=== PATIENT | female | born 1965 | race American Indian/Alaskan Native ===

== ENCOUNTER 2016-10-24 14:05 | Inpatient (IN) | payer MEDICAID, OTHER ==
--- NOTE | 2016-10-24 14:35 | C.PDOC ---
History Of Present Illness 51 y/o female, hx of morbid obesity, presents to emergency department with complaint of low back pain and b/l "leg weakness:, she has had worsening over last "few days". at baseline, pt usually is sedentary due to habitus, and is only able to ambulate with the assistance of a walker. pt c/o of lower back pain , but denies specific trauma, saddle anesthesia, urinary changes, bowel/bladder incontinence. no h/o of herniated discs or spinal canal disease. no numbness paresthesias. at bedside, pt is poor historian. Time Seen by Provider: 10/24/16 14:19 Chief Complaint (Nursing): Weakness/Neurological Deficit History Per: Patient History/Exam Limitations: no limitations Onset/Duration Of Symptoms: Days Current Symptoms Are (Timing): Still Present Fall Associated With With Symptoms: No Recent travel outside of the [place]: No Past Medical History Reviewed: Historical Data, Nursing Documentation, Vital Signs Vital Signs: Last Vital Signs Temp 97.7 F 10/30/16 15:40 Pulse 88 10/30/16 15:40 Resp 20 10/30/16 15:40 BP 124/82 10/30/16 15:40 Pulse Ox 96 10/30/16 15:40 - Medical History PMH: Anemia, Asthma, COPD, Diabetes, HTN - [facility] Procedures GROUP PSYCHOTHERAPY (10/24/16) INDIVIDUAL PSYCHOTHERAPY, COGNITIVE-BEHAVIORAL (10/24/16) INDIVIDUAL PSYCHOTHERAPY, SUPPORTIVE (10/24/16) Family History: States: Unknown Family Hx - Social History Hx Tobacco Use: No Hx Alcohol Use: No Hx Substance Use: No Review Of Systems Except As Marked, All Systems Reviewed And Found Negative. Constitutional: Negative for: Fever, Chills Cardiovascular: Negative for: Chest Pain Respiratory: Negative for: Shortness of Breath, Wheezing Gastrointestinal: Negative for: Nausea, Vomiting, Abdominal Pain Musculoskeletal: Positive for: Back Pain, Leg Pain. Negative for: Neck Pain Neurological: Positive for: Weakness (bilateral legs). Negative for: Headache Physical Exam - Physical Exam Appears: Non-toxic, No Acute Distress, Other ((+)morbidly obese, in mild painful distress.) Skin: Normal Color, Warm, Dry Head: Atraumatic, Normacephalic Neck: Normal ROM, Supple Chest: Symmetrical, No Tenderness Cardiovascular: Rhythm Regular Respiratory: Normal Breath Sounds, No Rales, No Rhonchi, No Wheezing Gastrointestinal/Abdominal: Soft, No Tenderness, No Mass, No Guarding, No Rebound Back: Vertebral Tenderness (lumbar), No Paraspinal Tenderness Extremity: Normal ROM, No Tenderness, Capillary Refill (< 2 sec. ), No Deformity, No Swelling Extremity: Bilateral: Normal Color And Temperature Neurological/Psych: Oriented x3, Normal Speech, Normal Cognition, Normal Sensation, Other (flat affect, (+)hip flexion 2/5 (+)5/5 knee flexion, extention (+)5/5 plantar flexion/extention, Normal sensation, no saddle anesthesia) ED Course And Treatment - Laboratory Results Result Diagrams: 10/30/16 07:17 08 07:17 O2 Sat by Pulse Oximetry: 98 (RA) Pulse Ox Interpretation: Normal - Other Rad Lumbar Spine XR X-Ray: Viewed By Me, Read By Radiologist Interpretation: FINDINGS: Osseous demineralization. Multilevel degenerative changes including mild osteophyte formation. Facet hypertrophy. Vertebral body heights appear within normal limits. Intervertebral disc spaces appear preserved. IVC filter. Two punctate radiopaque densities project over the right upper quadrant of unclear etiology. IMPRESSION: Degenerative changes of the spine. IVC filter. Two sub cm radiopaque densities project over the right upper quadrant of unclear etiology. Correlate clinically. Medical Decision Making Medical Decision Making: pt with low back pain, and "leg weakness". pt poor historian, will eval for lumbar disc disease, labs imaging pending, pt w/o saddle anesthesia, bowel/ bladder incontinence, acute cord compression less likely. Plan: * morphine * MRI lumbar spine * labs, urinalysis * reassess Progress Notes: 300: case discussed with driver license technician, will attempt to obtain mri, unsure if body habitus will prevent imaging study. 330: attempted to obtain MRI, however unable to obtain given body habitus. T lumbar spine ordered. 16:19 - Discussed with Dr. Thurston. resident bedside, accepts for obs pt with difficulty ambulating, will need PT eval for gait dysfunction. ct later resulted as mild disc bulge. pt observed in er in nad, taking po. Disposition - Disposition Disposition: HOSPITALIZED Disposition Time: 05:00 Condition: STABLE - Clinical Impression Clinical Impression: Low back pain, Unsteady gait - Scribe Statement The provider has reviewed the documentation as recorded by the Scribe Kamron Heller All medical record entries made by the Carolee were at my direction and personally dictated by me. I have reviewed the chart and agree that the record accurately reflects my personal performance of the history, physical exam, medical decision making, and the department course for this patient. I have also personally directed, reviewed, and agree with the discharge instructions and disposition.
[2016-10-24] MEDS ORDERED: Morphine 4 MG/ML VIAL IVP STA (14:41)
[2016-10-24] MEDS ORDERED: Morphine 4 MG/ML VIAL ONE ×2 (15:32→16:47)
[2016-10-24 15:34] LABS: BASO # 0.1 K/uL (0.0-0.2); BASO % 0.5 % (0.0-2.0); EOS # 0.1 K/uL (0.0-0.7); EOS % 0.5 % (0.0-4.0); HEMATOCRIT 40.3 % (34.0-47.0); LYMPH # 1.4 K/uL (1.0-4.3); LYMPH % 11.7 % (20.0-40.0); MEAN CELL VOLUME 86.5 fL (81.0-99.0); MEAN CORPUSCULAR HEMOGLOBIN 27.5 pg (27.0-31.0); MEAN CORPUSCULAR HGB CONC 31.8 g/dL (33.0-37.0); MEAN PLATELET VOLUME 8.6 fL (7.2-11.7); MONO # 0.6 K/uL (0.0-0.8); MONO % 5.1 % (0.0-10.0); RED CELL DISTRIBUTION WIDTH 14.3 % (11.5-14.5); WHITE BLOOD COUNT 12.1 K/uL (4.8-10.8)
[2016-10-24 15:42] LABS: INR 1.1
[2016-10-24 15:46] LABS: CHLORIDE 104 mmol/L (98-107)
[2016-10-24 15:47] LABS: POTASSIUM 4.4 mmol/L (3.6-5.2); SODIUM 142 mmol/L (132-148)
[2016-10-24 15:49] LABS: ALB/GLOB RATIO 1.1 (1.0-2.1); AST/SGOT 24 U/L (14-36); BILIRUBIN,TOTAL 0.7 mg/dL (0.2-1.3); BLOOD UREA NITROGEN 19 mg/dL (7-17); CARBON DIOXIDE 23 mmol/L (22-30); GFR AFRICAN-AMERICAN > 60; TOTAL PROTEIN 7.2 g/dL (6.3-8.3)
[2016-10-24 15:50] LABS: ALKALINE PHOSPHATASE 85 U/L (38-126); ALT/SGPT 25 U/L (9-52); CALCIUM 9.3 mg/dl (8.6-10.4); GLUCOSE,RANDOM 162 mg/dL (65-105)
--- NOTE | 2016-10-24 17:15 | RAD ---
PROCEDURE: Radiographs of the Lumbar Spine. HISTORY: low back pain COMPARISON: None available. FINDINGS: Osseous demineralization. Multilevel degenerative changes including mild osteophyte formation. Facet hypertrophy. Vertebral body heights appear within normal limits. Intervertebral disc spaces appear preserved. IVC filter. Two punctate radiopaque densities project over the right upper quadrant of unclear etiology. IMPRESSION: Degenerative changes of the spine. IVC filter. Two sub cm radiopaque densities project over the right upper quadrant of unclear etiology. Correlate clinically.
--- NOTE | 2016-10-24 17:49 | CP.PCM.PN ---
Subjective - Date & Time of Evaluation Date of Evaluation: 10/24/16 Time of Evaluation: 17:38 - Subjective Subjective: Medicine Note- Dr Thurston's Service 51 year old female with PMHx of HTN, DM, Asthma, COPD, anemia, depression, and DVT with IVC filter presents with complaint of lower extremity weakness. Patient states that 4 days ago she started to experience bilateral lower leg weakness where her legs felt "heavy." The patient is normally sedentary and only gets up to use the restroom. She ambulates without any assistance but walks slowly due to her obese status. Yesterday the patient was going to the bathroom and fell after her "legs gave out" on her. Patient fell forward on her elbows and scraped them. Patient denies loss of consciousness, dizziness, incontinence, or head trauma at that time. The patient remembers the incident clearly. After her fall the patient developed low back pain, rated 10/10. She started taking Tylenol which has not been helping relieve her symptoms. The patient denies numbness or tingling of her extremities that is new, but does admit to chronic diabetic neuropathy. She denies fever, chills, recent illness , neck pain, confusion, dizziness, change in vision, tinnitus, abdominal pain, incontinence, change in bowel movements, palpitations, recent trauma, recent travel, slurred speech, dysphagia, recent weight changes. The patient admits that she has not been sleeping well and is requesting a psychiatrist. Patient denies visual or auditory hallucinations, suicidal ideations, or homicidal ideations. In the ED the patient was taken for Lumbar spine X-ray and CT scan. MRI of the spine could not be done due to patient's body habitus. PMD: Dr Davis PMHx: HTN, DM, Asthma, COPD, anemia, depression, and DVT with IVC filter Meds: Folic acid daily, Metformin 500mg PO daily, Feosol 325mg PO BID, Atorvastatin 10mg PO HS, Risperdone 2mg PO BID, Enalapril 10mg PO daily, Prednisone 10mg PO daily, Gabapentin 400mg PO TID, Humalog 30u SC AM, Serovent INH 2puff BID Family Hx: 2 sisters- CVA; Dad- [place] Surgical Hx: L oophorectomy, cholecystectomy, IVC filter Social Hx: Denies EtOH use; denies illicit drug use; previous smoker quit 30 years ago (smoked for 10 years); lives at home with daughter and son Allergies: no known allergies Objective - Vital Signs/Intake and Output Vital Signs (last 24 hours): Temp Pulse Resp BP Pulse Ox 98 F 75 18 119/67 95 10/24/16 14:27 10/24/16 16:50 10/24/16 16:50 10/24/16 16:50 10/24/16 16:50 - Medications Medications: Current Medications Enoxaparin Sodium (Lovenox) 40 mg SC DAILY [facility] Famotidine (Pepcid) 20 mg PO BID [facility] - Labs Labs: PT 12.4 SECONDS (9.7-12.2) H 10/24/16 15:31 INR 1.1 10/24/16 15:31 APTT 29 SECONDS (21-34) 10/24/16 15:31 - Constitutional Appears: Non-toxic, No Acute Distress - Head Exam Head Exam: ATRAUMATIC, NORMOCEPHALIC - Eye Exam Eye Exam: EOMI, Normal appearance, PERRL. absent: Nystagmus Pupil Exam: NORMAL ACCOMODATION - ENT Exam ENT Exam: Mucous Membranes Moist - Neck Exam Neck Exam: Full ROM, Normal Inspection. absent: Tenderness - Respiratory Exam Respiratory Exam: Clear to Ausculation Bilateral, NORMAL BREATHING PATTERN. absent: Rales, Rhonchi, Wheezes, Respiratory Distress - Cardiovascular Exam Cardiovascular Exam: REGULAR RHYTHM, +S1, +S2. absent: Tachycardia, Diastolic murmur, Irregular Rhythm - GI/Abdominal Exam GI & Abdominal Exam: Soft, Normal Bowel Sounds. absent: Distended, Firm, Guarding, Rigid, Tenderness Additional comments: central obesity - Extremities Exam Extremities Exam: Pedal Edema (mild non-pitting edema bilateral ankles ). absent: Full ROM, Tenderness - Back Exam Back Exam: paraspinal tenderness - Neurological Exam Neurological Exam: Alert, Awake, CN II-XII Intact, Oriented x3 Neuro motor strength exam: Left Upper Extremity: 5, Right Upper Extremity: 5, Left Lower Extremity: 2/1 (pateint unable to lift legs off bed), Right Lower Extremity: 2/1 (pateint unable to life legs off bed ) - Psychiatric Exam Psychiatric exam: Flat Affect, Normal Mood. absent: Agitated, Anxious, Depressed, Homicidal Ideation, Suicidal Ideation - Skin Skin Exam: Dry, Intact, Normal Color, Warm Assessment and Plan - Assessment and Plan (Free Text) Assessment: 1. Bilateral Lower Extremity Weakness * Xray L-spine: degenerative changes * CT L-Spine: Degenerative change no fracture; mild disc bulge at L5/S1 * Consulted Dr Juan David stewart f/u recommendations * f/u lyme, B12, Vitamin D, folate * PT/OT eval * f/u elbow X-rays 2. Back pain * Gabapentin 400mg PO TID * Morphine 1mg IV q4h prn 3. DM * f/u HgA1C * Metformin 500mg PO daily * ISS * Accuchecks 4. HTN * Monitor vitals q4h * Continue home meds: Enalapril 10mg PO daily 5. Asthma/COPD * Well controlled * Duonebs 3ml INH q6h [facility] * Prednisone 10mg PO daily 6. Hx Depression * Denies SI/HI at this time * Consulted psych Dr Kaila stewart f/u recommendations * Risperdone 2mg PO BID 7. Hx of DVT with IVC filter * f/u venous dopplers 8. Prophylactic measures * Lovenox 40mg SC daily * Pepcid 20mg PO BID
--- NOTE | 2016-10-24 18:18 | CT ---
EXAM: CT Lumbar Spine Without Intravenous Contrast CLINICAL HISTORY: 51 years old, female; Pain; Low back pain TECHNIQUE: Axial computed tomography images of the lumbar spine without intravenous contrast. This CT exam was performed using one or more of the following dose reduction techniques: automated exposure control, adjustment of the mA and/or kV according to patient size, and/or use of iterative reconstruction technique. Coronal and sagittal reformatted images were created and reviewed. EXAM DATE/TIME: 10/24/2016 4:03 PM COMPARISON: There are no prior studies for comparison. FINDINGS: Limitations: Technique limits evaluation of soft tissues Vertebrae and Discs/spinal canal/neural foramina: Lumbar vertebral bodies are normal in height and alignment. There are no fractures. There is degenerative facet disease greatest at L4-5 and L5-S1. There is facet joint narrowing and subchondral sclerosis. Disc spaces are maintained. There is mild disc bulging L5/S1. Sacroiliac joints are patent. Mineralization is normal. Soft tissues: Psoas and paraspinous muscles are symmetric. Vasculature: An IVC filter is in place. Reproductive: Uterus is enlarged and lobular with partially calcified fibroids. IMPRESSION: Degenerative change no fracture; mild disc bulge at L5/S1 MRI suggests more further evaluation as clinically indicated
[2016-10-24] MEDS: (Novolin R) Insulin Human Regular 100 units/ml vial SC SCH (22:14)
[2016-10-24 22:18] LABS: FOLATE > 20.0 ng/mL
[2016-10-24] MEDS: Albuterol-Ipratrop 3 mg / 0.5 (3 ml) UD INH SCH (22:35)
[2016-10-25] MEDS: Albuterol-Ipratrop 3 mg / 0.5 (3 ml) UD INH SCH ×4 (01:14→19:45)
[2016-10-25 07:03] LABS: BASO # 0.1 K/uL (0.0-0.2); BASO % 0.7 % (0.0-2.0); EOS # 0.2 K/uL (0.0-0.7); EOS % 1.8 % (0.0-4.0); LYMPH # 2.7 K/uL (1.0-4.3); LYMPH % 22.7 % (20.0-40.0); MEAN CORPUSCULAR HEMOGLOBIN 27.7 pg (27.0-31.0); MEAN CORPUSCULAR HGB CONC 31.8 g/dL (33.0-37.0); MEAN PLATELET VOLUME 8.7 fL (7.2-11.7); MONO # 0.9 K/uL (0.0-0.8); MONO % 7.7 % (0.0-10.0); RED CELL DISTRIBUTION WIDTH 14.2 % (11.5-14.5)
[2016-10-25 07:06] LABS: ALB/GLOB RATIO 1.3 (1.0-2.1); ALKALINE PHOSPHATASE 76 U/L (38-126); ALT/SGPT 26 U/L (9-52); AST/SGOT 19 U/L (14-36); BILIRUBIN,TOTAL 0.3 mg/dL (0.2-1.3); BLOOD UREA NITROGEN 19 mg/dL (7-17); CALCIUM 9.1 mg/dl (8.6-10.4); CARBON DIOXIDE 26 mmol/L (22-30); CHLORIDE 103 mmol/L (98-107); CHOLESTEROL 150 mg/dL (0-199); GFR AFRICAN-AMERICAN > 60; GLUCOSE,RANDOM 154 mg/dL (65-105); POTASSIUM 4.2 mmol/L (3.6-5.2); SODIUM 142 mmol/L (132-148); TOTAL PROTEIN 6.3 g/dL (6.3-8.3)
[2016-10-25] MEDS: (Novolin R) Insulin Human Regular 100 units/ml vial SC SCH ×4 (07:30→21:44)
[2016-10-25 07:34] LABS: THYROID STIMULATING HORMONE 2.46 mIU/L (0.46-4.68)
--- NOTE | 2016-10-25 09:54 | CP.PCM.PN ---
Subjective - Date & Time of Evaluation Date of Evaluation: 10/25/16 Time of Evaluation: 09:46 - Subjective Subjective: Medicine Note- Dr Thurston's service Patient seen and examined. Patient states that she is still having back pain today and that the morphine is not helping her. Patient continues to complain of lower leg weakness but is able to lift her legs higher and move them more today. Patient complains that she did not sleep last night again. Patient has difficulty sleeping at home as well but does not take any medications for sleep. Patient has been in [facility] multiple times in the past for generalized weakness and gait instability. The patient admits that she would like to go to long-term placement facility at this time because she is unable to take care of herself at home. Patient denies all other ROS. Objective - Vital Signs/Intake and Output Vital Signs (last 24 hours): Temp Pulse Resp BP Pulse Ox 98.2 F 78 20 116/77 96 10/25/16 08:19 10/25/16 08:19 10/25/16 08:19 10/25/16 08:19 10/25/16 08:19 - Medications Medications: Current Medications Albuterol/Ipratropium (Duoneb 3 Mg/0.5 Mg (3 Ml) Ud) 3 ml INH RQ6 [facility] Last Admin: 10/25/16 07:52 Dose: 3 ml Ascorbic Acid (Vitamin C 500 Mg Tab) 500 mg PO DAILY [facility] Enalapril Maleate (Vasotec) 10 mg PO DAILY [facility] Enoxaparin Sodium (Lovenox) 40 mg SC DAILY [facility] Famotidine (Pepcid) 20 mg PO BID [facility] Last Admin: 10/24/16 19:05 Dose: 20 mg Ferrous Sulfate (Feosol) 325 mg PO BID [facility] Folic Acid (Folic Acid) 1 mg PO DAILY [facility] Gabapentin (Neurontin) 400 mg PO TID [facility] Insulin Human Regular (Novolin R) 0 unit SC ACHS [facility] PRN Reason: Protocol Last Admin: 10/24/16 22:14 Dose: Not Given Metformin HCl (Glucophage) 500 mg PO DAILY [facility] Morphine Sulfate (Morphine) 1 mg IVP Q4 PRN PRN Reason: Pain, moderate (4-7) Last Admin: 10/24/16 20:58 Dose: 1 mg Multivitamins (Hexavitamin) 1 tab PO DAILY [facility] Prednisone (Prednisone Tab) 10 mg PO DAILY [facility] Risperidone (Risperdal Tab) 2 mg PO BID [facility] Rosuvastatin Calcium (Crestor) 5 mg PO HS [facility] - Labs Labs: 10/25/16 06:42 10/25/16 06:38 PT 12.4 SECONDS (9.7-12.2) H 10/24/16 15:31 INR 1.1 10/24/16 15:31 APTT 29 SECONDS (21-34) 10/24/16 15:31 - Constitutional Appears: Non-toxic, No Acute Distress - Head Exam Head Exam: ATRAUMATIC, NORMOCEPHALIC - Eye Exam Eye Exam: EOMI, Normal appearance - ENT Exam ENT Exam: Mucous Membranes Moist - Respiratory Exam Respiratory Exam: Clear to Ausculation Bilateral, NORMAL BREATHING PATTERN. absent: Rhonchi, Wheezes, Respiratory Distress - Cardiovascular Exam Cardiovascular Exam: REGULAR RHYTHM, +S1, +S2. absent: Murmur - GI/Abdominal Exam GI & Abdominal Exam: Soft, Normal Bowel Sounds. absent: Guarding, Rigid, Tenderness Additional comments: central obesity - Extremities Exam Extremities Exam: Pedal Edema (bilateral LE pedal edema, non-pitting). absent: Tenderness - Back Exam Back Exam: paraspinal tenderness (L3-L5). absent: rash noted, vertebral tenderness - Neurological Exam Neurological Exam: Alert, Awake, CN II-XII Intact, Oriented x3 Neuro motor strength exam: Left Upper Extremity: 5, Right Upper Extremity: 5, Left Lower Extremity: 3, Right Lower Extremity: 3 Additional comments: resting tremor in upper extremities - Psychiatric Exam Psychiatric exam: Flat Affect, Normal Mood Assessment and Plan - Assessment and Plan (Free Text) Assessment: 1. Bilateral Lower Extremity Weakness * Xray L-spine: degenerative changes * CT L-Spine: Degenerative change no fracture; mild disc bulge at L5/S1 * Consulted Dr Juan David Newberry- terry f/u recommendations * f/u lyme * B12, vitamin D and folate within normal limits * PT/OT eval * f/u elbow X-rays 2. Back pain * Gabapentin 400mg PO TID * Morphine 2mg IV q4h prn mod pain 3. DM * HgA1C 8.1 * Metformin 500mg PO daily * ISS * Accuchecks 4. HTN * Well controlled * Monitor vitals q4h * Continue home med: Enalapril 10mg PO daily 5. Asthma/COPD * Well controlled * Duonebs 3ml INH q6h [facility] * Prednisone 10mg PO daily * Singulair 10mg PO HS 6. Hx Depression * Denies SI/HI at this time * Consulted psych Dr Kaila stewart f/u recommendations * Risperdone 2mg PO BID 7. Hx of DVT with IVC filter * venous dopplers + bilateral DVTs * No acute intervention at this time as patient has IVC filter and this is chronic 8. Prophylactic measures * Lovenox 40mg SC daily * Pepcid 20mg PO BID * Pending placement to LT care facility All management and orders per Dr Thurston
[2016-10-25] MEDS: Multiple Vitamins Tab PO SCH (10:54)
[2016-10-25] MEDS: Enoxaparin 40 mg Syringe SC SCH (10:54)
--- NOTE | 2016-10-25 11:45 | RAD ---
PROCEDURE: Radiographs of the left elbow. HISTORY: trauma s/p fall COMPARISON: No prior. FINDINGS: BONES: Normal. No fracture. JOINTS: Normal. No osteoarthritis. SOFT TISSUES: Normal. JOINT EFFUSION: None. OTHER FINDINGS: None IMPRESSION: No acute findings related to/accounting for the clinical presentation.
--- NOTE | 2016-10-25 15:17 | VASCLAB ---
PROCEDURE: Lower Extremity Venous Duplex Exam. HISTORY: hx DVT, leg swelling PRIORS: None. TECHNIQUE: Bilateral common femoral, femoral, popliteal and posterior tibial, peroneal and great saphenous veins were evaluated. Flow was assessed with color Doppler, compressibility, assessment of phasic flow and augmentation response. Report prepared by HARSHA Dejesus, RVT FINDINGS: RIGHT: 1. Common Femoral Vein: 1.1. Compressibility - Partial: Thrombus - Acute : Flow - Absent : Augmentation -None: Reflux - None. 2. Femoral Vein: 2.1. Compressibility - Partial: Thrombus - Acute : Flow - Absent : Augmentation -None: Reflux - None. 3. Popliteal Vein: 3.1. Compressibility - Partial: Thrombus - Acute : Flow - Absent : Augmentation -None: Reflux - None. 4. Posterior Tibial Vein: 4.1. Compressibility - : Thrombus - : Flow - : Augmentation -: Reflux - . 5. Peroneal Vein: 5.1. Compressibility - : Thrombus - : Flow - : Augmentation -: Reflux - . 6. Great Saphenous Vein: 6.1. Compressibility - Partial: Thrombus - Acute: Flow - Absent : Augmentation - None: Reflux - None. LEFT: 1. Common Femoral Vein: 1.1. Compressibility - Incompressible: Thrombus - Chronic: Flow - Reduced : Augmentation -Reduced: Reflux - None. 2. Femoral Vein: 2.1. Compressibility - Fully compressible: Thrombus - None: Flow - Phasic: Augmentation -Normal: Reflux - None. 3. Popliteal Vein: 3.1. Compressibility - Fully compressible: Thrombus - None : Flow - Phasic: Augmentation -Normal: Reflux - None. 4. Posterior Tibial Vein: 4.1. Compressibility - Fully compressible: Thrombus - None: Flow - Phasic: Augmentation -Normal: Reflux - None. 5. Peroneal Vein: 5.1. Compressibility - Fully compressible: Thrombus - None: Flow - Phasic: Augmentation -Normal: Reflux - None. 6. Great Saphenous Vein: 6.1. Compressibility - Incompressible: Thrombus - Chronic: Flow - Reduced : Augmentation - Reduced: Reflux - None. OTHER FINDINGS: RN Edilberto notified about the findings. IMPRESSION: Right: Acute thrombosis of the right common femoral, femoral, popliteal and greater saphenous veins with severe reduction of the venous return. 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
--- NOTE | 2016-10-25 16:09 | PCM.PSYCH ---
Initial Psychiatric Evaluation - Initial Psychiatric Evaluation Type of Admission: Voluntary Legal Status: Capacity Chief Complaint (in patient's own words): "I need help sleeping" Consult request from Dr. Thurston History of Present Illness and Precipitating Events: Patient is seen and evaluated with medical student present. This is a 51 year old female, , 3 children (25yo - daughter; 27yo & 28yo - sons), previously employed as a retail merchandising specialist, and currently lives with her daughter in [place]. Patient has a history of bipolar disorder and per patient, is admitted to medicine service because, "my legs aren't working." Patient states that she is currently treated with Risperdol and would like to be put on something else. Patient reports that her current medication is not helping her depression at all. Patient states that 2 months ago, she began having difficulty falling asleep and staying asleep; sleeping in 2 hour intervals. Patient denies previous difficulty sleeping, describing a regular 7 hours of rarely interrupted sleep, except to use the bathroom and was able to fall back to sleep. Patient is seeking help with her sleep and depression. Patient denies SI/HI. Denies auditory/visual hallucinations. Patient reports symptoms of paranoia, feeling as if shes being watched and people are talking about her. Patient states that her depression is affect by both her current medical state and the loss of her mother in November 2015. Patient reports increasing depression as the 1yr anniversary of her mother's approaches. Past MedHx: HTN, Asthma, COPD, DM, Anemia Past PsycHx: Bipolar Substance Use: Denies Tobacco: quit in 1990 Alcohol: Denies Allergies: NKDA Current Medications: Active Medications Generic Name Dose Route Start Last Admin Trade Name Freq PRN Reason Stop Dose Admin Albuterol/Ipratropium 3 ml 10/24/16 20:00 10/25/16 14:11 Duoneb 3 Mg/0.5 Mg (3 Ml) Ud INH 3 ml RQ6 [facility] Administration Ascorbic Acid 500 mg 10/25/16 10:10/25/16 10:54 Vitamin C 500 Mg Tab PO 500 mg DAILY [facility] Administration Enalapril Maleate 10 mg 10/25/16 10:00 10/25/16 10:57 Vasotec PO 10 mg DAILY [facility] Administration Enoxaparin Sodium 40 mg 10/25/16 10:00 10/25/16 10:54 Lovenox SC 40 mg DAILY [facility] Administration Famotidine 20 mg 10/24/16 18:00 10/25/16 10:54 Pepcid PO 20 mg BID [facility]A Administration Ferrous Sulfate 325 mg 10/25/16 10:00 10/25/16 10:54 Feosol PO 325 mg BID [facility] Administration Folic Acid 1 mg 10/25/16 10:00 10/25/16 10:55 Folic Acid PO 1 mg DAILY [facility] Administration Gabapentin 400 mg 10/25/16 10:00 10/25/16 13:07 Neurontin PO 400 mg TID [facility] Administration Insulin Human Regular 0 unit 10/24/16 22:00 10/25/16 11:58 Novolin R SC 3 unit ACHS [facility]A Administration Protocol Metformin HCl 500 mg 10/25/16 10:00 10/25/16 10:55 Glucophage PO 500 mg DAILY [facility] Administration Montelukast Sodium 10 mg 10/25/16 22:00 Singulair PO HS [facility] Morphine Sulfate 2 mg 10/25/16 09:58 Morphine IVP Q4 PRN Pain, moderate (4-7) Multivitamins 1 tab 10/25/16 10:00 10/25/16 10:54 Hexavitamin PO 1 tab DAILY [facility] Administration Prednisone 10 mg 10/25/16 10:00 10/25/16 10:54 Prednisone Tab PO 10 mg DAILY [facility] Administration Risperidone 2 mg 10/25/16 10:00 10/25/16 10:54 Risperdal Tab PO 2 mg BID [facility] Administration Rosuvastatin Calcium 5 mg 10/25/16 22:00 Crestor PO HS [facility] Past Psychiatric History - Past Psychiatric History Previous Treatment History: None Pertinent Medical Hx (Current Medical&Sleep Prob, Allergies): Allergies Allergy/AdvReac Type Severity Reaction Status Date / Time No Known Allergies Allergy Unverified 07/20/13 05:04 Ascorbate Calcium [Vitamin C] 500 mg PO DAILY 10/24/16 Atorvastatin [Lipitor] 10 mg PO DAILY 10/24/16 Enalapril Maleate [Vasotec] 10 mg PO DAILY 10/24/16 Ferrous Sulfate [Feosol] 325 mg PO BID 10/24/16 Folic Acid 1 mg PO DAILY 10/24/16 Gabapentin [Neurontin] 400 mg PO TID 10/24/16 Multivitamin [Multivitamins] 1 each PO DAILY 10/24/16 Prednisone 10 mg PO DAILY 10/24/16 Risperidone [Risperdal] 2 mg PO BID 10/24/16 metFORMIN [glucOPHAGE] 500 mg PO DAILY 10/24/16 Review of Systems - Review of Systems All systems: reviewed and no additional remarkable complaints except - Psychiatric Psychiatric: Anxiety, Irritability, Paranoia Mental Status Examination - Personal Presentation Personal Presentation: Looks stated age - Affect Affect: Constricted - Motor Activity Motor Activity: Calm - Reliability in Providing Information Reliability in Providing Information: Poor, due to alteration in thoughts - Speech Speech: Disorganized - Mood Mood: Anxious - Formal Thought Process Formal Thought Process: Delusions, Paranoia, Loosening of associations - Hallucinations/Delusions Delusions: Persecution - Obsessions/Compulsions Obsessions: No Compulsions: No - Cognitive Functions Orientation: Person, Place, Situation, Time Sensorium: Alert Attention/Concentration: Attentive Abstract Thinking: [place] Estimate of Intelligence: Below average Judgement: Imparied, as evidence by: Poor judgement, Intact, as evidence by: Good judgement - Risk Risk: Diminished functioning - Strength & Assets Inventory Strength & Assets Inventory: Family support DSM 5 DX - DSM 5 DSM 5 Diagnosis: Bipolar disorder with psychosis rule out Schizoaffective disorder bipolar type - Recommended/Plan of Treatment Treatment Recommendations and Plan of Treatment: Bipolar disorder with psychosis rule out Schizoaffective disorder bipolar type CBT Psychoeducation Supportive therapy, group therapy, individual therapy Continue Risperdal 2 mg by mouth twice a day Neurontin 400 mg by mouth 3 times a day Cogentin 1 mg by mouth twice a day
[2016-10-26] MEDS: Albuterol-Ipratrop 3 mg / 0.5 (3 ml) UD INH SCH ×4 (01:21→19:01)
[2016-10-26] MEDS: (Novolin R) Insulin Human Regular 100 units/ml vial SC SCH ×4 (07:57→21:44)
[2016-10-26] MEDS: Multiple Vitamins Tab PO SCH (09:48)
[2016-10-26] MEDS: Enoxaparin 40 mg Syringe SC SCH (09:48)
[2016-10-26] MEDS ORDERED: Enoxaparin 40 mg Syringe SC ONE (10:25)
[2016-10-26 11:05] LABS: BASO # 0.1 K/uL (0.0-0.2); BASO % 0.5 % (0.0-2.0); EOS # 0.2 K/uL (0.0-0.7); EOS % 1.5 % (0.0-4.0); HEMATOCRIT 37.2 % (34.0-47.0); LYMPH # 2.3 K/uL (1.0-4.3); LYMPH % 19.3 % (20.0-40.0); MEAN CELL VOLUME 86.8 fL (81.0-99.0); MEAN CORPUSCULAR HEMOGLOBIN 28.1 pg (27.0-31.0); MEAN CORPUSCULAR HGB CONC 32.4 g/dL (33.0-37.0); MEAN PLATELET VOLUME 8.9 fL (7.2-11.7); MONO % 8.2 % (0.0-10.0); WHITE BLOOD COUNT 11.7 K/uL (4.8-10.8)
[2016-10-26 11:09] LABS: CHLORIDE 101 mmol/L (98-107); POTASSIUM 4.1 mmol/L (3.6-5.2); SODIUM 137 mmol/L (132-148)
[2016-10-26 11:11] LABS: AST/SGOT 15 U/L (14-36); BILIRUBIN,TOTAL 0.9 mg/dL (0.2-1.3); CARBON DIOXIDE 23 mmol/L (22-30); GFR AFRICAN-AMERICAN > 60
[2016-10-26 11:12] LABS: ALB/GLOB RATIO 1.1 (1.0-2.1); ALKALINE PHOSPHATASE 83 U/L (38-126); ALT/SGPT 24 U/L (9-52); BLOOD UREA NITROGEN 18 mg/dL (7-17); CALCIUM 8.9 mg/dl (8.6-10.4); GLUCOSE,RANDOM 211 mg/dL (65-105); TOTAL PROTEIN 6.7 g/dL (6.3-8.3)
[2016-10-26 12:31] LABS: RBC URINE 2 /hpf (0-3); URINE BILIRUBIN NEGATIVE (NEGATIVE); URINE BLOOD NEGATIVE (NEGATIVE); URINE COLOR Yellow (YELLOW); URINE GLUCOSE (UA) NORMAL (Normal); URINE KETONE NEGATIVE (NEGATIVE); URINE LEUKOCYTE ESTERASE 3+ Leu/uL (Negative); URINE PROTEIN NEGATIVE (NEGATIVE); URINE UROBILINOGEN NORMAL mg/dL (0.2-1.0); WBC URINE 25 /hpf (0-5)
[2016-10-26 12:39] LABS: URINE BACTERIA MOD (<OCC)
[2016-10-26] MEDS: Enoxaparin 80 mg Syringe SC SCH (22:17)
[2016-10-27] MEDS: Albuterol-Ipratrop 3 mg / 0.5 (3 ml) UD INH SCH ×4 (01:05→20:22)
--- NOTE | 2016-10-27 08:08 | HP ---
HISTORY OF PRESENT ILLNESS: A 51-year-old female with chief complaint weakness, fatigue, tiredness, difficulty walking, weakness in the lower extremity, back pain, admission. The patient had history of obesity in the past and spinal stenosis. PHYSICAL EXAMINATION: GENERAL: The patient is awake, alert, and oriented. VITAL SIGNS: Temperature 98 and pulse 96. HEENT: Within normal limits. NECK: Supple. CHEST: Symmetrical. HEART: Regular. ABDOMEN: Soft. EXTREMITIES: No edema. IMPRESSION AND PLAN: The patient has lumbar disk arthritis and radiculopathy, morbid obesity, and deconditioning. The patient is on bedrest, neurology evaluation . Rhett Thurston MD
[2016-10-27] MEDS: (Novolin R) Insulin Human Regular 100 units/ml vial SC SCH ×4 (08:29→21:22)
[2016-10-27 09:37] LABS: BASO # 0.1 K/uL (0.0-0.2); BASO % 0.4 % (0.0-2.0); EOS # 0.2 K/uL (0.0-0.7); EOS % 1.5 % (0.0-4.0); HEMATOCRIT 39.1 % (34.0-47.0); LYMPH # 2.5 K/uL (1.0-4.3); LYMPH % 21.6 % (20.0-40.0); MEAN CELL VOLUME 86.5 fL (81.0-99.0); MEAN CORPUSCULAR HEMOGLOBIN 27.7 pg (27.0-31.0); MEAN CORPUSCULAR HGB CONC 32.1 g/dL (33.0-37.0); MEAN PLATELET VOLUME 8.7 fL (7.2-11.7); MONO # 0.9 K/uL (0.0-0.8); RED CELL DISTRIBUTION WIDTH 14.1 % (11.5-14.5); WHITE BLOOD COUNT 11.7 K/uL (4.8-10.8)
[2016-10-27 09:52] LABS: CHLORIDE 100 mmol/L (98-107); POTASSIUM 4.4 mmol/L (3.6-5.2); SODIUM 137 mmol/L (132-148)
[2016-10-27 09:54] LABS: GFR AFRICAN-AMERICAN > 60
[2016-10-27 09:55] LABS: ALKALINE PHOSPHATASE 93 U/L (38-126); ALT/SGPT 28 U/L (9-52); AST/SGOT 19 U/L (14-36); BLOOD UREA NITROGEN 20 mg/dL (7-17); CALCIUM 9.1 mg/dl (8.6-10.4); CARBON DIOXIDE 23 mmol/L (22-30); GLUCOSE,RANDOM 191 mg/dL (65-105); TOTAL PROTEIN 7.1 g/dL (6.3-8.3)
[2016-10-27] MEDS: Multiple Vitamins Tab PO SCH (11:00)
[2016-10-27] MEDS: Enoxaparin 80 mg Syringe SC SCH ×2 (11:00→21:24)
[2016-10-27 17:13] VITALS: RESP 20
[2016-10-28] MEDS: Albuterol-Ipratrop 3 mg / 0.5 (3 ml) UD INH SCH ×4 (01:50→19:39)
[2016-10-28 07:14] LABS: BASO # 0.1 K/uL (0.0-0.2); BASO % 0.5 % (0.0-2.0); EOS # 0.2 K/uL (0.0-0.7); EOS % 2.1 % (0.0-4.0); HEMATOCRIT 36.7 % (34.0-47.0); LYMPH # 2.7 K/uL (1.0-4.3); LYMPH % 23.4 % (20.0-40.0); MEAN CELL VOLUME 86.3 fL (81.0-99.0); MEAN CORPUSCULAR HEMOGLOBIN 28.2 pg (27.0-31.0); MEAN CORPUSCULAR HGB CONC 32.7 g/dL (33.0-37.0); MEAN PLATELET VOLUME 8.6 fL (7.2-11.7); MONO # 0.9 K/uL (0.0-0.8); MONO % 8.1 % (0.0-10.0); RED CELL DISTRIBUTION WIDTH 13.7 % (11.5-14.5); WHITE BLOOD COUNT 11.4 K/uL (4.8-10.8)
[2016-10-28 07:23] LABS: CHLORIDE 99 mmol/L (98-107)
[2016-10-28 07:24] LABS: POTASSIUM 4.5 mmol/L (3.6-5.2); SODIUM 137 mmol/L (132-148)
[2016-10-28 07:26] LABS: AST/SGOT 20 U/L (14-36); BILIRUBIN,TOTAL 0.8 mg/dL (0.2-1.3); BLOOD UREA NITROGEN 18 mg/dL (7-17); CARBON DIOXIDE 25 mmol/L (22-30); GFR AFRICAN-AMERICAN > 60; TOTAL PROTEIN 6.7 g/dL (6.3-8.3)
[2016-10-28 07:27] LABS: ALKALINE PHOSPHATASE 85 U/L (38-126); ALT/SGPT 35 U/L (9-52); CALCIUM 8.9 mg/dl (8.6-10.4); GLUCOSE,RANDOM 155 mg/dL (65-105)
[2016-10-28] MEDS: (Novolin R) Insulin Human Regular 100 units/ml vial SC SCH ×4 (08:28→23:00)
[2016-10-28] MEDS: Enoxaparin 80 mg Syringe SC SCH ×2 (09:35→23:00)
[2016-10-28] MEDS: Multiple Vitamins Tab PO SCH (09:37)
--- NOTE | 2016-10-28 14:06 | CP.PCM.PN ---
Subjective - Date & Time of Evaluation Date of Evaluation: 10/28/16 Time of Evaluation: 14:01 - Subjective Subjective: Medicine Note- Dr Thurston's service Patient seen and examined. She continues to complain of back pain today and states that the morphine is not helping her. Her lower leg weakness is still present but when asked to move her legs, she is able to. Patient denies headache , fevers, chills, chest pain, shortness of breath, abdominal pain, dysuria, bladder fullness, urinary hesitancy/increased frequency. Objective - Vital Signs/Intake and Output Vital Signs (last 24 hours): Temp Pulse Resp BP Pulse Ox 98.4 F 77 20 117/66 97 10/28/16 07:35 10/28/16 07:35 10/28/16 07:35 10/28/16 09:37 10/28/16 07:35 Intake and Output: 10/28/16 10/28/16 06:59 18:59 Intake Total 420 Balance 420 - Medications Medications: Current Medications Albuterol/Ipratropium (Duoneb 3 Mg/0.5 Mg (3 Ml) Ud) 3 ml INH RQ6 [facility] Last Admin: 10/28/16 13:10 Dose: 3 ml Ascorbic Acid (Vitamin C 500 Mg Tab) 500 mg PO DAILY [facility] Last Admin: 10/28/16 09:36 Dose: 500 mg Benztropine Mesylate (Cogentin) 1 mg PO BID [facility] Last Admin: 10/28/16 09:36 Dose: 1 mg Enalapril Maleate (Vasotec) 10 mg PO DAILY [facility] Last Admin: 10/28/16 09:37 Dose: 10 mg Enoxaparin Sodium (Lovenox) 80 mg SC Q12 [facility] Last Admin: 10/28/16 09:35 Dose: 80 mg Famotidine (Pepcid) 20 mg PO BID [facility] Last Admin: 10/28/16 09:36 Dose: 20 mg Ferrous Sulfate (Feosol) 325 mg PO BID [facility] Last Admin: 10/28/16 09:37 Dose: 325 mg Folic Acid (Folic Acid) 1 mg PO DAILY [facility] Last Admin: 10/28/16 09:36 Dose: 1 mg Gabapentin (Neurontin) 400 mg PO TID [facility] Last Admin: 10/28/16 09:36 Dose: 400 mg Hydroxyzine HCl (Atarax) 25 mg PO Q6 PRN PRN Reason: Agitation Last Admin: 10/26/16 22:44 Dose: 25 mg Insulin Human Regular (Novolin R) 0 unit SC ACHS [facility] PRN Reason: Protocol Last Admin: 10/28/16 12:29 Dose: 3 unit Metformin HCl (Glucophage) 500 mg PO DAILY [facility] Last Admin: 10/28/16 09:36 Dose: 500 mg Montelukast Sodium (Singulair) 10 mg PO HS [facility] Last Admin: 10/27/16 21:23 Dose: 10 mg Morphine Sulfate (Morphine) 2 mg IVP Q4 PRN PRN Reason: Pain, moderate (4-7) Multivitamins (Hexavitamin) 1 tab PO DAILY [facility] Last Admin: 10/28/16 09:37 Dose: 1 tab Prednisone (Prednisone Tab) 10 mg PO DAILY [facility] Last Admin: 10/28/16 09:36 Dose: 10 mg Risperidone (Risperdal Tab) 2 mg PO BID [facility] Last Admin: 10/28/16 09:36 Dose: 2 mg Rosuvastatin Calcium (Crestor) 5 mg PO HS [facility] Last Admin: 10/27/16 21:23 Dose: 5 mg - Labs Labs: 10/28/16 07:04 10/28/16 07:04 PT 12.4 SECONDS (9.7-12.2) H 10/24/16 15:31 INR 1.1 10/24/16 15:31 APTT 29 SECONDS (21-34) 10/24/16 15:31 - Constitutional Appears: No Acute Distress, Unkempt - Eye Exam Eye Exam: Normal appearance - ENT Exam ENT Exam: Mucous Membranes Moist - Respiratory Exam Respiratory Exam: NORMAL BREATHING PATTERN - Cardiovascular Exam Cardiovascular Exam: REGULAR RHYTHM - GI/Abdominal Exam GI & Abdominal Exam: Soft. absent: Tenderness - Extremities Exam Additional comments: +2 pedal edema - Neurological Exam Neurological Exam: Alert, Awake, Oriented x3 Assessment and Plan - Assessment and Plan (Free Text) Plan: 1. Bilateral Lower Extremity Weakness * Xray L-spine: degenerative changes * CT L-Spine: Degenerative change no fracture; mild disc bulge at L5/S1 * f/u lyme * B12, vitamin D and folate within normal limits * PT/OT eval 2. Hx of DVT with IVC filter * duplex: acute thorombi in R common femoral, femoral, popliteal, and greater saphenous veins. Chronic thrombi in L common femoral and greater saphenous veins. * Continue on lovenox 80mg SC BID * No acute intervention at this time as patient has IVC filter and this is chronic 3. Back pain * Gabapentin 400mg PO TID * Morphine 2mg IV q4h prn mod pain 4. Urine analysis positive for Leukocyte Esterase Follow up urine culture 5. DM * HgA1C 8.1 * Metformin 500mg PO daily * ISS * Accuchecks 6. HTN- controlled * Continue home med: Enalapril 10mg PO daily 7. Asthma/COPD * Well controlled * Duonebs 3ml INH q6h [facility] * Prednisone 10mg PO daily * Singulair 10mg PO HS 8. Hx Depression * Denies SI/HI at this time * Consulted psych Dr Kaila stewart f/u recommendations * Risperdone 2mg PO BID 9. Prophylactic measures * Pepcid 20mg PO BID * Pending placement to LT care facility 10. Constipation Started on dulcolax All management and orders per Dr Thurston
[2016-10-28] MEDS ORDERED: Bisacodyl 5mg EC Tab PO ONE (14:20)
[2016-10-29] MEDS: Albuterol-Ipratrop 3 mg / 0.5 (3 ml) UD INH SCH ×4 (01:25→19:32)
[2016-10-29 06:30] LABS: BASO % 0.4 % (0.0-2.0); EOS # 0.3 K/uL (0.0-0.7); EOS % 2.6 % (0.0-4.0); HEMATOCRIT 36.5 % (34.0-47.0); LYMPH # 2.2 K/uL (1.0-4.3); LYMPH % 20.2 % (20.0-40.0); MEAN CELL VOLUME 86.2 fL (81.0-99.0); MEAN CORPUSCULAR HEMOGLOBIN 28.3 pg (27.0-31.0); MEAN CORPUSCULAR HGB CONC 32.9 g/dL (33.0-37.0); MEAN PLATELET VOLUME 8.4 fL (7.2-11.7); MONO # 0.8 K/uL (0.0-0.8); MONO % 7.2 % (0.0-10.0); RED CELL DISTRIBUTION WIDTH 14.1 % (11.5-14.5); WHITE BLOOD COUNT 10.9 K/uL (4.8-10.8)
[2016-10-29 06:46] LABS: ALB/GLOB RATIO 1.2 (1.0-2.1); ALKALINE PHOSPHATASE 74 U/L (38-126); ALT/SGPT 28 U/L (9-52); AST/SGOT 15 U/L (14-36); BILIRUBIN,TOTAL 0.3 mg/dL (0.2-1.3); BLOOD UREA NITROGEN 21 mg/dL (7-17); CALCIUM 8.9 mg/dl (8.6-10.4); CARBON DIOXIDE 27 mmol/L (22-30); CHLORIDE 96 mmol/L (98-107); GFR AFRICAN-AMERICAN > 60; GLUCOSE,RANDOM 199 mg/dL (65-105); POTASSIUM 4.6 mmol/L (3.6-5.2); SODIUM 136 mmol/L (132-148); TOTAL PROTEIN 6.2 g/dL (6.3-8.3)
[2016-10-29] MEDS: (Novolin R) Insulin Human Regular 100 units/ml vial SC SCH ×4 (08:04→21:42)
[2016-10-29] MEDS: Multiple Vitamins Tab PO SCH (11:01)
[2016-10-29] MEDS: Enoxaparin 80 mg Syringe SC SCH (11:02)
--- NOTE | 2016-10-29 15:12 | CP.PCM.PN ---
Subjective - Date & Time of Evaluation Date of Evaluation: 10/29/16 Time of Evaluation: 15:10 - Subjective Subjective: Medicine Note- Dr Thurston's service Patient seen and examined. Complains of back pain. Her lower leg weakness is still present but when asked to move her legs, she is able to. Patient denies headache, fevers, chills, chest pain, shortness of breath, abdominal pain, dysuria, bladder fullness, urinary hesitancy/increased frequency. No acute events overnight as per nursing staff. Pt was complaining of constipation yesterday and had bowel movement following dulcolax. Objective - Vital Signs/Intake and Output Vital Signs (last 24 hours): Temp Pulse Resp BP Pulse Ox 98 F 78 20 118/81 99 10/29/16 07:00 10/29/16 07:00 10/29/16 07:00 10/29/16 11:00 10/29/16 07:00 Intake and Output: 10/29/16 10/29/16 06:59 18:59 Intake Total 540 Balance 540 - Medications Medications: Current Medications Albuterol/Ipratropium (Duoneb 3 Mg/0.5 Mg (3 Ml) Ud) 3 ml INH RQ6 [facility] Last Admin: 10/29/16 13:37 Dose: Not Given Apixaban (Eliquis) 5 mg PO Q12 [facility] Ascorbic Acid (Vitamin C 500 Mg Tab) 500 mg PO DAILY [facility] Last Admin: 10/29/16 11:00 Dose: 500 mg Benztropine Mesylate (Cogentin) 1 mg PO BID [facility] Last Admin: 10/29/16 11:00 Dose: 1 mg Enalapril Maleate (Vasotec) 10 mg PO DAILY [facility] Last Admin: 10/29/16 11:00 Dose: 10 mg Famotidine (Pepcid) 20 mg PO BID [facility] Last Admin: 10/29/16 11:01 Dose: 20 mg Ferrous Sulfate (Feosol) 325 mg PO BID [facility] Last Admin: 10/29/16 11:01 Dose: 325 mg Folic Acid (Folic Acid) 1 mg PO DAILY [facility] Last Admin: 10/29/16 11:03 Dose: 1 mg Gabapentin (Neurontin) 400 mg PO TID [facility] Last Admin: 10/29/16 14:18 Dose: 400 mg Hydroxyzine HCl (Atarax) 25 mg PO Q6 PRN PRN Reason: Agitation Last Admin: 10/29/16 11:00 Dose: 25 mg Insulin Human Regular (Novolin R) 0 unit SC ACHS [facility] PRN Reason: Protocol Last Admin: 10/29/16 12:31 Dose: 4 unit Metformin HCl (Glucophage) 500 mg PO DAILY [facility] Last Admin: 10/29/16 11:00 Dose: 500 mg Montelukast Sodium (Singulair) 10 mg PO HS [facility] Last Admin: 10/28/16 23:00 Dose: 10 mg Multivitamins (Hexavitamin) 1 tab PO DAILY [facility] Last Admin: 10/29/16 11:01 Dose: 1 tab Prednisone (Prednisone Tab) 10 mg PO DAILY [facility] Last Admin: 10/29/16 11:01 Dose: 10 mg Risperidone (Risperdal Tab) 2 mg PO BID [facility] Last Admin: 10/29/16 11:00 Dose: 2 mg Rosuvastatin Calcium (Crestor) 5 mg PO HS [facility] Last Admin: 10/28/16 23:00 Dose: 5 mg - Labs Labs: 10/29/16 06:22 10/29/16 06:22 PT 12.4 SECONDS (9.7-12.2) H 10/24/16 15:31 INR 1.1 10/24/16 15:31 APTT 29 SECONDS (21-34) 10/24/16 15:31 - Constitutional Appears: No Acute Distress - Eye Exam Eye Exam: EOMI, Normal appearance - ENT Exam ENT Exam: Mucous Membranes Moist - Respiratory Exam Respiratory Exam: Decreased Breath Sounds - Cardiovascular Exam Cardiovascular Exam: REGULAR RHYTHM - Extremities Exam Extremities Exam: Pedal Edema (+2). absent: Calf Tenderness - Neurological Exam Neurological Exam: Alert, Awake, Oriented x3 Assessment and Plan - Assessment and Plan (Free Text) Plan: 1. Bilateral Lower Extremity Weakness * Xray L-spine: degenerative changes * CT L-Spine: Degenerative change no fracture; mild disc bulge at L5/S1 * B12, vitamin D and folate within normal limits * PT/OT eval * F/u Lyme panel 2. Hx of DVT with IVC filter * duplex identified acute DVT's: acute thorombi in R common femoral, femoral, popliteal, and greater saphenous veins. Chronic thrombi in L common femoral and greater saphenous veins. * Switch from lovenox 80mg SC BID to Eliquis 5mg PO BID * Patient has IVC filter 3. Back pain * Gabapentin 400mg PO TID * Morphine 2mg IV q4h prn mod pain 4. Urine analysis positive for Leukocyte Esterase Follow up urine culture 5. DM * HgA1C 8.1 * Metformin 500mg PO daily * ISS * Accuchecks 6. HTN- controlled * Continue home med: Enalapril 10mg PO daily 7. Asthma/COPD * Well controlled * Duonebs 3ml INH q6h [facility] * Prednisone 10mg PO daily * Singulair 10mg PO HS 8. Hx Depression * Denies SI/HI at this time * Consulted psych Dr Mosher * Continue Risperdal 2 mg by mouth twice a day * Neurontin 400 mg by mouth 3 times a day * Cogentin 1 mg by mouth twice a day 9. Prophylactic measures * Pepcid 20mg PO BID * Switch from lovenox 80mg SC BID to Eliquis 5mg PO daily 10. Constipation Started on dulcolax- has had bowel movement Pt is set to be discharged however needs further PT eval before she will qualify for [facility] placement. Although patient has been evaluated for discharge by Dr. Thurston, case therapist has indicated that she cannot find proper placement for this patient until further PT eval. D/C pending further PT eval. All management and orders per Dr Thurston
[2016-10-30] MEDS: Albuterol-Ipratrop 3 mg / 0.5 (3 ml) UD INH SCH ×3 (01:42→13:02)
[2016-10-30 07:27] LABS: BASO # 0.1 K/uL (0.0-0.2); BASO % 0.7 % (0.0-2.0); EOS # 0.3 K/uL (0.0-0.7); EOS % 2.4 % (0.0-4.0); LYMPH # 2.4 K/uL (1.0-4.3); MEAN CELL VOLUME 86.4 fL (81.0-99.0); MEAN CORPUSCULAR HEMOGLOBIN 27.8 pg (27.0-31.0); MEAN CORPUSCULAR HGB CONC 32.1 g/dL (33.0-37.0); MEAN PLATELET VOLUME 8.6 fL (7.2-11.7); MONO # 0.9 K/uL (0.0-0.8); MONO % 7.5 % (0.0-10.0); NRBC % 0.1 % (0.0-2.0); RED CELL DISTRIBUTION WIDTH 13.5 % (11.5-14.5); WHITE BLOOD COUNT 11.5 K/uL (4.8-10.8)
[2016-10-30 08:05] LABS: CHLORIDE 98 mmol/L (98-107)
[2016-10-30 08:06] LABS: POTASSIUM 4.7 mmol/L (3.6-5.2); SODIUM 139 mmol/L (132-148)
[2016-10-30 08:08] LABS: ALKALINE PHOSPHATASE 90 U/L (38-126); AST/SGOT 19 U/L (14-36); BILIRUBIN,TOTAL 0.7 mg/dL (0.2-1.3); CARBON DIOXIDE 24 mmol/L (22-30); GFR AFRICAN-AMERICAN > 60; TOTAL PROTEIN 6.6 g/dL (6.3-8.3)
[2016-10-30 08:09] LABS: ALT/SGPT 30 U/L (9-52); BLOOD UREA NITROGEN 19 mg/dL (7-17); CALCIUM 8.9 mg/dl (8.6-10.4); GLUCOSE,RANDOM 237 mg/dL (65-105)
[2016-10-30] MEDS: (Novolin R) Insulin Human Regular 100 units/ml vial SC SCH ×3 (08:18→17:26)
[2016-10-30] MEDS: Multiple Vitamins Tab PO SCH (09:37)
--- NOTE | 2016-10-30 13:57 | CP.PCM.PN ---
Subjective - Date & Time of Evaluation Date of Evaluation: 10/30/16 Time of Evaluation: 07:35 - Subjective Subjective: PGY [address] Thurston: Patient seen and examined. Complains of back pain. Her lower leg weakness is still present but when asked to move her legs, she is able to. Patient denies headache, fevers, chills, chest pain, shortness of breath, abdominal pain, dysuria, bladder fullness, urinary hesitancy/increased frequency. Per PT she is not participating much. No acute events overnight as per nursing staff. Pt was complaining of constipation yesterday but states since then she has had 2 bowel movements. She is tolerating her diet. She has been accept to [place] and will be discharged there today. Objective - Vital Signs/Intake and Output Vital Signs (last 24 hours): Temp Pulse Resp BP Pulse Ox 98.0 F 84 20 117/73 95 10/30/16 07:25 10/30/16 11:54 10/30/16 07:25 10/30/16 09:37 10/30/16 07:25 Intake and Output: 10/30/16 10/30/16 06:59 18:59 Intake Total 600 Balance 600 - Medications Medications: Current Medications Albuterol/Ipratropium (Duoneb 3 Mg/0.5 Mg (3 Ml) Ud) 3 ml INH RQ6 [facility] Last Admin: 10/30/16 13:02 Dose: 3 ml Apixaban (Eliquis) 5 mg PO Q12 [facility] Last Admin: 10/30/16 09:37 Dose: 5 mg Ascorbic Acid (Vitamin C 500 Mg Tab) 500 mg PO DAILY [facility] Last Admin: 10/30/16 10:02 Dose: 500 mg Benztropine Mesylate (Cogentin) 1 mg PO BID [facility] Last Admin: 10/30/16 09:37 Dose: 1 mg Enalapril Maleate (Vasotec) 10 mg PO DAILY [facility] Last Admin: 10/30/16 09:37 Dose: 10 mg Famotidine (Pepcid) 20 mg PO BID [facility] Last Admin: 10/30/16 09:36 Dose: 20 mg Ferrous Sulfate (Feosol) 325 mg PO BID [facility] Last Admin: 10/30/16 09:37 Dose: 325 mg Folic Acid (Folic Acid) 1 mg PO DAILY [facility] Last Admin: 10/30/16 09:37 Dose: 1 mg Gabapentin (Neurontin) 400 mg PO TID [facility] Last Admin: 10/30/16 09:37 Dose: 400 mg Hydroxyzine HCl (Atarax) 25 mg PO Q6 PRN PRN Reason: Agitation Last Admin: 10/29/16 21:49 Dose: 25 mg Insulin Human Regular (Novolin R) 0 unit SC ACHS [facility] PRN Reason: Protocol Last Admin: 10/30/16 12:20 Dose: 4 unit Metformin HCl (Glucophage) 500 mg PO DAILY [facility] Last Admin: 10/30/16 09:36 Dose: 500 mg Montelukast Sodium (Singulair) 10 mg PO HS [facility] Last Admin: 10/29/16 21:44 Dose: 10 mg Multivitamins (Hexavitamin) 1 tab PO DAILY [facility] Last Admin: 10/30/16 09:37 Dose: 1 tab Prednisone (Prednisone Tab) 10 mg PO DAILY [facility] Last Admin: 10/30/16 09:36 Dose: 10 mg Risperidone (Risperdal Tab) 2 mg PO BID [facility] Last Admin: 10/30/16 09:36 Dose: 2 mg Rosuvastatin Calcium (Crestor) 5 mg PO HS [facility] Last Admin: 10/29/16 21:44 Dose: 5 mg - Labs Labs: 10/30/16 07:17 10/30/16 07:17 PT 12.4 SECONDS (9.7-12.2) H 10/24/16 15:31 INR 1.1 10/24/16 15:31 APTT 29 SECONDS (21-34) 10/24/16 15:31 - Constitutional Appears: Non-toxic, No Acute Distress - Head Exam Head Exam: ATRAUMATIC, NORMAL INSPECTION - Eye Exam Eye Exam: EOMI, Normal appearance - ENT Exam ENT Exam: Mucous Membranes Moist - Respiratory Exam Respiratory Exam: Clear to Ausculation Bilateral, NORMAL BREATHING PATTERN. absent: Rales, Rhonchi, Wheezes, Respiratory Distress - Cardiovascular Exam Cardiovascular Exam: REGULAR RHYTHM, +S1, +S2 - GI/Abdominal Exam GI & Abdominal Exam: Soft, Normal Bowel Sounds. absent: Distended, Firm, Guarding, Tenderness - Extremities Exam Additional comments: Pedal edema 3+ up to hips, able to move ext, good pulses, ext warm - Back Exam Back Exam: NORMAL INSPECTION. absent: CVA tenderness (L), CVA tenderness (R), paraspinal tenderness - Neurological Exam Neurological Exam: Alert, Awake, CN II-XII Intact. absent: Normal Gait - Psychiatric Exam Psychiatric exam: Normal Affect, Normal Mood Assessment and Plan - Assessment and Plan (Free Text) Assessment: 1. Bilateral Lower Extremity Weakness * Xray L-spine: degenerative changes * CT L-Spine: Degenerative change no fracture; mild disc bulge at L5/S1 * B12, vitamin D and folate within normal limits * PT/OT eval * F/u Lyme panel 2. Hx of DVT with IVC filter * duplex identified acute DVT's: acute thorombi in R common femoral, femoral, popliteal, and greater saphenous veins. Chronic thrombi in L common femoral and greater saphenous veins. * Eliquis 5mg PO BID * Patient has IVC filter 3. Back pain * Gabapentin 400mg PO TID * Morphine 2mg IV q4h prn mod pain 4. UTI +Ecoli not resistant to any abx Cipro 500mg PO BID x 7 days 5. DM * HgA1C 8.1 * Metformin 500mg PO daily * ISS * Accuchecks 6. HTN- controlled * Continue home med: Enalapril 10mg PO daily 7. Asthma/COPD * Well controlled * Duonebs 3ml INH q6h [facility] * Prednisone 10mg PO daily * Singulair 10mg PO HS 8. Hx Depression * Denies SI/HI at this time * Consulted psych Dr Mosher * Continue Risperdal 2 mg by mouth twice a day * Neurontin 400 mg by mouth 3 times a day * Cogentin 1 mg by mouth twice a day 9. Prophylactic measures * Pepcid 20mg PO BID * Switch from lovenox 80mg SC BID to Eliquis 5mg PO daily * Physical therapy 10. Constipation Resolved Patient was accepted and will be discharged to [place] today. SHe is to continue current medications and follow up with Dr. Thurston within 1 week of discharge. All management and orders per Dr Thurston
[2016-10-30 16:04] VITALS: BP 124/82; PULSE 88; TEMP 97.7
[2016-11-01 11:00] VITALS: O2SAT 98
--- NOTE | 2016-11-04 09:03 | CARD ---
APPROVED REPORT EKG Measurement Heart [id number] <Conclusion> Sinus rhythm with occasional premature ventricular complexes Possible Anterior infarct, age undetermined Abnormal ECG
--- NOTE | 2016-11-07 09:13 | DS ---
HISTORY OF PRESENT ILLNESS: The patient admitted to the hospital, complaining of back pain, weakness in lower extremities. The patient came to the ER, advised admission. The patient is morbidly obese. History of back pain in the past, spinal stenosis. PHYSICAL EXAMINATION: GENERAL: The patient is awake, alert, oriented, obese with tenderness in the lower back with *------* range of motion. *------*. DISCHARGE DIAGNOSES: 1. Spinal stenosis. 2. Lumbar radiculopathy. 3. Morbid obesity. Rhett Thurston MD
[2016-11-08 17:13] LABS: LYME IGM NEGATIVE (NEGATIVE)
[2016-11-08 17:20] LABS: LYME IGG NEGATIVE (NEGATIVE)
== END 2016-10-30 19:29 | DRG 560 ==
LOC: C.ER 14:05 → C.9E 16:39 → C.6T 20:37
PROVIDERS: ADMIT Internal Medicine Pulmonary Disease; ATTEND Internal Medicine Pulmonary Disease
PROC: GZHZZZZ Group Psychotherapy (ICD-10-PCS; principal; 2016-10-24)
PROC: GZ58ZZZ Individual Psychotherapy, Cognitive-Behavioral (ICD-10-PCS; 2016-10-24)
PROC: GZ56ZZZ Individual Psychotherapy, Supportive (ICD-10-PCS; 2016-10-24)
DX: M51.16 Intervertebral disc disorders with radiculopathy, lumbar region (principal); I82.411 Acute embolism and thrombosis of right femoral vein; E11.40 Type 2 diabetes mellitus with diabetic neuropathy, unspecified; E66.01 Morbid (severe) obesity due to excess calories; I82.431 Acute embolism and thrombosis of right popliteal vein; J44.9 Chronic obstructive pulmonary disease, unspecified; N39.0 Urinary tract infection, site not specified; I82.512 Chronic embolism and thrombosis of left femoral vein; F31.9 Bipolar disorder, unspecified; I10 Essential (primary) hypertension; F29 Unspecified psychosis not due to a substance or known physiological condition; M46.96 Unspecified inflammatory spondylopathy, lumbar region; J45.909 Unspecified asthma, uncomplicated; D64.9 Anemia, unspecified; Z82.3 Family history of stroke; Z87.891 Personal history of nicotine dependence; Z86.718 Personal history of other venous thrombosis and embolism; K59.00 Constipation, unspecified; B96.20 Unspecified Escherichia coli [E. coli] as the cause of diseases classified elsewhere